=== PATIENT | female | born 1960 ===

== ENCOUNTER 2020-06-14 12:53 | Inpatient (IN) ==
[2020-06-14] MEDS ORDERED: Aspirin 81 MG TAB.CHEW PO ONE (13:38)
[2020-06-14] MEDS ORDERED: Nitroglycerin 0.4 MG TAB.SUBL SL PRN (13:38)
[2020-06-14 14:03] LABS: Basophils # 0.1 K/mcL (0.0-0.2); Basophils % 0.5 %; Eosinophils # 0.2 K/mcL (0.0-0.6); Eosinophils % 1.9 %; Hematocrit 37.2 % (35.3-44.9); Hemoglobin 12.6 g/dL (11.5-15.4); Immature Granulocytes % 0.8 % (0-4); Lymphocytes # 2.6 K/mcL (0.6-4.6); Lymphocytes % 24.1 %; Mean Corpuscular HGB Conc 33.9 g/dL (31.6-35.5); Mean Corpuscular Hemoglobin 30.8 pg (28.0-33.3); Mean Platelet Volume 9.2 fL (9.4-12.4); Monocytes # 0.8 K/mcL (0.0-1.3); Monocytes % 7.5 %; Platelet Count 323 K/mcL (140-400); Red Blood Count 4.09 M/mcL (3.82-4.97); Red Cell Distribution Width 12.1 % (11.5-14.5); Segmented Neutrophils % 65.2 %; White Blood Count 10.7 K/mcL (4.3-11.1)
[2020-06-14 14:29] LABS: BUN/Creatinine Ratio 15 (6-26); Blood Urea Nitrogen 7 mg/dL (6-20); Calcium 9.4 mg/dL (8.6-10.3); Carbon Dioxide 22 mEq/L (23-29); Chloride 99 mEq/L (98-107); Glucose 113 mg/dL (70-105); Lipase 69 Units/L (11-82); Osmolality,Calculated 273 (280-300); Potassium 3.9 mEq/L (3.5-5.1); Sodium 132 mEq/L (136-145); Troponin I 0.09 ng/mL (< 0.04); eGFR For African Americans > 60 (> 60); eGFR For Non-African Americans > 60 (> 60)
[2020-06-14] MEDS ORDERED: *HR* Heparin 5,000 UNIT/ML VIAL IVP ONE (14:58)
[2020-06-14] MEDS ORDERED: *HR* Heparin 5,000 UNIT/ML VIAL IVP PRN ×2 (14:58)
[2020-06-14] MEDS ORDERED: Heparin 25,000UNIT/250ML 1/2NS 25,000 UNIT/250 ML IV.SOLN IVC SCH (15:00)
[2020-06-14] MEDS ORDERED: Ondansetron 4 MG/2 ML VIAL IVP PRN (15:16)
[2020-06-14] MEDS ORDERED: Naloxone 0.4 MG/ML INJ IVP PRN (15:16)
[2020-06-14] MEDS ORDERED: *HR* Labetalol 20 MG/4 ML SYRINGE IVP PRN (15:18)
[2020-06-14] MEDS ORDERED: Perflutren Lipid Microsphere 1.3 ML in 0.9 % Sodium Chloride 8.7 ML IVP PRN (15:18)
[2020-06-14 15:47] LABS: Heparin anti-factor XA UFH < 0.04 IU/mL (0.30-0.70)
[2020-06-14 15:48] LABS: Prothrombin Time 11.5 Seconds (9.4-12.1)
[2020-06-14] MEDS: Ringers Solution, Lactated 1,000 ML IVC SCH (17:34)
[2020-06-14] MEDS: Nicotine 21 MG PATCH.TD24 TD SCH (17:34)
[2020-06-14] MEDS: Metoprolol 100 MG TABLET PO SCH (20:41)
[2020-06-15 02:21] LABS: Basophils # 0.1 K/mcL (0.0-0.2); Basophils % 0.7 %; Eosinophils # 0.2 K/mcL (0.0-0.6); Eosinophils % 2.8 %; Hematocrit 34.1 % (35.3-44.9); Hemoglobin 11.7 g/dL (11.5-15.4); Immature Granulocytes % 0.4 % (0-4); Lymphocytes # 3.6 K/mcL (0.6-4.6); Lymphocytes % 42.5 %; Mean Corpuscular HGB Conc 34.3 g/dL (31.6-35.5); Mean Corpuscular Hemoglobin 31.7 pg (28.0-33.3); Mean Corpuscular Volume 92.4 fL (83.0-100.0); Mean Platelet Volume 9.3 fL (9.4-12.4); Monocytes # 0.8 K/mcL (0.0-1.3); Monocytes % 9.5 %; Neutrophils # 3.7 K/mcL (1.6-8.9); Platelet Count 275 K/mcL (140-400); Red Blood Count 3.69 M/mcL (3.82-4.97); Red Cell Distribution Width 12.2 % (11.5-14.5); Segmented Neutrophils % 44.1 %; White Blood Count 8.5 K/mcL (4.3-11.1)
[2020-06-15 02:37] LABS: BUN/Creatinine Ratio 14 (6-26); Blood Urea Nitrogen 6 mg/dL (6-20); Calcium 9.5 mg/dL (8.6-10.3); Carbon Dioxide 27 mEq/L (23-29); Chloride 104 mEq/L (98-107); Chol/HDL Ratio 4.6 (0-4.9); Cholesterol 229 mg/dL (< 200); Glucose 99 mg/dL (70-105); HDL Cholesterol 50 mg/dL (40-59); LDL Cholesterol,Calculated 124 mg/dL (< 100); Magnesium 1.5 mg/dL (1.6-2.6); Osmolality,Calculated 284 (280-300); Potassium 3.6 mEq/L (3.5-5.1); Sodium 138 mEq/L (136-145); Triglycerides 273 mg/dL (< 150); eGFR For African Americans > 60 (> 60); eGFR For Non-African Americans > 60 (> 60)
[2020-06-15] MEDS: Ringers Solution, Lactated 1,000 ML IVC SCH (06:34)
[2020-06-15 08:23] LABS: Estimated Average Glucose 111 mg/dl
[2020-06-15] MEDS: Aspirin Enteric Coated 81 MG Tablet PO SCH (08:27)
[2020-06-15] MEDS: Nicotine 21 MG PATCH.TD24 TD SCH (08:27)
[2020-06-15] MEDS: lisinopriL 20 MG TABLET PO SCH (08:49)
[2020-06-15] MEDS: Metoprolol 100 MG TABLET PO SCH ×2 (08:49→20:15)
[2020-06-15] MEDS ORDERED: lisinopriL 10 MG TABLET PO SCH (09:00)
[2020-06-15] MEDS ORDERED: Heparin 1,000 UNITS/500 mL 500 ML ONE (11:01)
[2020-06-15] MEDS ORDERED: 0.9 % Sodium Chloride 2,000 ML ONE (11:01)
[2020-06-15] MEDS ORDERED: ISOVUE-370 200 ML INFUS..BTL ONE ×2 (11:01→13:33)
[2020-06-15] MEDS ORDERED: *HR* Heparin 10,000 UNIT/10 ML VIAL ONE (11:01)
[2020-06-15] MEDS ORDERED: Nitroglycerin 1,000 MCG/10 ML VIAL IV ONE (11:02)
[2020-06-15] MEDS ORDERED: *HR* Midazolam HCl 2 MG/2 ML VIAL ONE (12:57)
[2020-06-15] MEDS ORDERED: *HR* FentaNYL (PF) 100 MCG/2 ML VIAL ONE (12:57)
[2020-06-15] MEDS ORDERED: Tirofiban 12.5 MG/250ML 12.5 MG/250 ML BAG ONE (13:28)
[2020-06-15] MEDS ORDERED: *HR* Ticagrelor 90 MG TABLET ONE (13:57)
[2020-06-15] MEDS ORDERED: Tirofiban 12.5 MG/250ML 12.5 MG/250 ML BAG IVC SCH (14:15)
[2020-06-15] MEDS ORDERED: Nitroglycerin Spray 4.9 GM BOTTLE ONE (15:12)
[2020-06-15] MEDS ORDERED: Levalbuterol Neb 1.25 MG/3 ML ONE (15:21)
[2020-06-15] MEDS: *HR* Ticagrelor 90 MG TABLET PO SCH (20:15)
[2020-06-16 02:58] LABS: Mean Corpuscular Volume 91.5 fL (83.0-100.0); Monocytes % 9.3 %
[2020-06-16 03:00] LABS: Basophils % 0.3 %; Eosinophils # 0.2 K/mcL (0.0-0.6); Eosinophils % 1.7 %; Hematocrit 33.5 % (35.3-44.9); Hemoglobin 11.2 g/dL (11.5-15.4); Immature Granulocytes % 0.2 % (0-4); Immature Platelets 3.2 % (1.1-6.1); Lymphocytes # 2.2 K/mcL (0.6-4.6); Lymphocytes % 25.1 %; Mean Corpuscular HGB Conc 33.4 g/dL (31.6-35.5); Mean Corpuscular Hemoglobin 30.6 pg (28.0-33.3); Mean Platelet Volume 9.5 fL (9.4-12.4); Monocytes # 0.8 K/mcL (0.0-1.3); Neutrophils # 5.6 K/mcL (1.6-8.9); Platelet Count 263 K/mcL (140-400); Red Blood Count 3.66 M/mcL (3.82-4.97); Red Cell Distribution Width 12.5 % (11.5-14.5); Segmented Neutrophils % 63.4 %; White Blood Count 8.8 K/mcL (4.3-11.1)
[2020-06-16 03:18] LABS: BUN/Creatinine Ratio 13 (6-26); Blood Urea Nitrogen 5 mg/dL (6-20); Calcium 8.9 mg/dL (8.6-10.3); Carbon Dioxide 23 mEq/L (23-29); Chloride 105 mEq/L (98-107); Glucose 93 mg/dL (70-105); Osmolality,Calculated 283 (280-300); Potassium 3.3 mEq/L (3.5-5.1); Sodium 138 mEq/L (136-145); eGFR For African Americans > 60 (> 60); eGFR For Non-African Americans > 60 (> 60)
[2020-06-16 07:07] VITALS: BP 112/72
[2020-06-16] MEDS: *HR* Ticagrelor 90 MG TABLET PO SCH (08:15)
[2020-06-16] MEDS: lisinopriL 20 MG TABLET PO SCH (08:15)
[2020-06-16] MEDS: Nicotine 21 MG PATCH.TD24 TD SCH (08:15)
[2020-06-16] MEDS: Metoprolol 100 MG TABLET PO SCH (08:15)
[2020-06-16] MEDS: Aspirin Enteric Coated 81 MG Tablet PO SCH (08:15)
== END 2020-06-16 12:39 | disposition home or self-care (01) | DRG 174 ==
LOC: 3BNU 12:53 → EMEROOARM 12:53 → 3BNU 16:30 → 2NNU 06-15 15:21
PROVIDERS: ADMIT Internal Medicine; ATTEND Internal Medicine